=== PATIENT | female | born 1990 ===

== ENCOUNTER 2022-03-27 17:47 | Inpatient (IN) | payer SELFPAY ==
[2022-03-27] MEDS ORDERED: ACETAMINOPHEN 325 MG TAB PO PRN (20:08)
[2022-03-27] MEDS ORDERED: TERBUTALINE 1 MG/1 ML INJ SUB-Q PRN (20:08)
[2022-03-27] MEDS ORDERED: BUTORPHANOL 2 MG/1 ML INJ IV PRN (20:08)
[2022-03-27] MEDS ORDERED: ePHEDrine SULFATE 50 MG/1 ML INJ IV PRN (20:08)
[2022-03-27] MEDS ORDERED: CARBOPROST TROMETHAMINE 250 MCG/1 ML INJ IM PRN (20:08)
[2022-03-27] MEDS ORDERED: fentaNYL 100 MCG/2 ML INJ IV PRN (20:08)
--- NOTE | 2022-03-27 20:27 | History and Physical Report ---
History of Present Illness Date of examination: 03/27/22 Date of admission: 03/27/2022 Chief complaint: Elevated blood pressure in the clinic History of present illness: 31-year-old at 38-3/7 weeks gestation presents to OB triage reporting elevated blood pressure that was >=140/90 in the clinic. There is no headache, diplopia, right upper quadrant pain, or scotomata. However, blood pressures are >=160/110 in OB triage. The patient was given intravenous labetalol to keep blood pressure <160/110. The estimated 24 urine protein is 1478 mg. As such, these clinical findings fulfill the contemporary criteria for preeclampsia with severe features. Therefore, induction of labor is medically indicated at this gestational age. The patient had a previous performed in [place] for her first gestation. The patient reports that the reason for the delivery was at her first gestation was in the breech position. The patient was unable to obtain operative report. The patient desires a trial of labor after (TOLAC). Because most patients with a prior uterine incision for common obstetric indications have had a low transverse hysterotomy, ACOG Practice Bulletin 205 states that decision-making regarding TOLAC versus PRCB can often be based upon this assumption. Furthermore, the risk of uterine rupture with an unknown scar is less than 1% per the National [place] [employer] (NICHD) Maternal- Medicine Units (MFMU) Network study. The patient was counseled regarding all of these risks. She wished to proceed with attempting TOLAC. She understands the possibility of emergent delivery is very much present. She understands that there is risk to her own life and risk to her fetus. She understands the risk of hysterectomy, , and hemorrhage. There is no vaginal bleeding or leaking fluid. There are irregular contractions. Cervical exam is 1 cm dilated in OB triage. The patient is admitted to labor and delivery for induction of labor secondary to preeclampsia with severe features and attempting TOLAC. Cervix to be ripened with Cook's catheter and Pitocin. Past History Past Medical History: no pertinent history Past Surgical History: section Family/Genetic History: none Social history: no significant social history - Obstetrical History Expected Date of Delivery: 04/07/22 Actual Gestation: 38 Week(s) 4 Day(s) : 2 Para: 1 Hx # Term Pregnancies: 1 Number of Living Children: 1 Medications and Allergies Allergies Allergy/AdvReac Type Severity Reaction Status Date / Time No Known Allergies Allergy Unverified 03/27/22 20:25 Active Meds: Active Medications Acetaminophen (Acetaminophen 325 Mg Tab) 650 mg PO Q4H PRN PRN Reason: Pain, Mild (1-3) Butorphanol Tartrate (Butorphanol 2 Mg/1 Ml Inj) 2 mg IV Q2H PRN PRN Reason: Pain, Moderate(4-6) LABOR PAIN Carboprost Tromethamine (Carboprost Tromethamine 250 Mcg/1 Ml Inj) 250 mcg IM ONCE PRN PRN Reason: Uterine Bleeding Ephedrine Sulfate (Ephedrine Sulfate 50 Mg/1 Ml Inj) 10 mg IV Q2M PRN PRN Reason: Hypotension Fentanyl (Fentanyl 100 Mcg/2 Ml Inj) 100 mcg IV Q2H PRN PRN Reason: Pain,Severe (7-10) LABOR PAIN Lactated Ringer's (Lactated Ringers) 1,000 mls @ 125 mls/hr IV DIRECT MEHNAZ Oxytocin/Sodium Chloride (Pitocin/Ns 30 Unit/500ml) 30 units in 500 mls @ 40 mls/hr IV TITR MEHNAZ; Protocol Labetalol HCl (Labetalol 20 Mg/4 Ml Inj) 20 mg IV ONCE STA Stop: 03/27/22 20:19 Misoprostol (Misoprostol 25 Mcg Tab) 25 mcg PO Q4H MEHNAZ Stop: 03/28/22 09:01 Terbutaline Sulfate (Terbutaline 1 Mg/1 Ml Inj) 0.25 mg SUB-Q ONCE PRN PRN Reason: Hyperstimulation/Hypertonicity Review of Systems All systems: negative - Vital Signs Vital signs: Vital Signs Pulse Pulse Ox 74 98 03/27/22 19:37 03/27/22 19:37 Temp Pulse Resp BP Pulse Ox 98.0 F 81 22 173/106 97 03/27/22 19:38 03/27/22 20:22 03/27/22 19:38 03/27/22 20:14 03/27/22 20:22 - Physical Exam Breasts: Positive: normal Cardiovascular: Regular rate Lungs: Positive: Normal air movement Abdomen: Positive: normal appearance, soft Vulva: both: normal Vagina: Positive: normal moisture Uterus: Positive: enlarged Adnexa: both: normal Anus/Rectum: Positive: normal perianal skin Extremities: Positive: normal Deep Tendon Reflex Grade: Normal +2 - Obstetrical FHR: category 1 Uterine Contraction Monitor Mode: External Cervical Dilatation: 1 Cervical Effacement Percentage: 50 station: -3 Uterine Contraction Pattern: Irregular Results Result Diagrams: 03/27/22 20:29 03/27/22 20:29 Urine Protein to Creatinine Ratio (UPCR)= 1.12. There is significant proteinuria. Estimated 24 hour urine protein= 1478 mg Ultrasound: report reviewed, image reviewed Assessment and Plan - Patient Problems (1) 38 weeks gestation of Current Visit: Yes Status: Acute Plan to address problem: care is up-to-date. She is GBS (-). (2) Severe preeclampsia Current Visit: Yes Status: Acute Plan to address problem: The patient had elevated blood pressure in the clinic that was >=140/90 in the clinic. There is no headache, diplopia, right upper quadrant pain, or scotomata. However, blood pressures are >=160/110 in OB triage. The patient was given intravenous labetalol to keep blood pressure <160/110. The estimated 24 urine protein is 1478 mg. As such, these clinical findings fulfill the contemporary criteria for preeclampsia with severe features. Therefore, induction of labor is medically indicated at this gestational age. The patient is admitted to labor and delivery for induction of labor secondary to preeclampsia with severe features and attempting TOLAC. Cervix to be ripened with Cook's catheter and Pitocin. (3) Encounter for induction of labor Current Visit: Yes Status: Acute Plan to address problem: The patient is admitted to labor and delivery for induction of labor secondary to preeclampsia with severe features and attempting TOLAC. Cervix to be ripened with Cook's catheter and Pitocin. (4) Desires (vaginal after ) trial Current Visit: Yes Status: Acute Plan to address problem: The patient had a previous performed in [place] for her first gestation. The patient reports that the reason for the delivery was at her first gestation was in the breech position. The patient was unable to obtain operative report. The patient desires a trial of labor after (TOLAC). Because most patients with a prior uterine incision for common obstetric indications have had a low transverse hysterotomy, ACOG Practice Bulletin 205 states that decision-making regarding TOLAC versus PRCB can often be based upon this assumption. Furthermore, the risk of uterine rupture with an unknown scar is less than 1% per the National [place] [employer] [facility] [employer] [facility] [employer] (NICHD) Maternal- Medicine Units (MFMU) Network study. The patient was counseled regarding all of these risks. She wished to proceed with attempting TOLAC. She understands the possibility of emergent delivery is very much present. She understands that there is risk to her own life and risk to her fetus. She understands the risk of hysterectomy, , and hemorrhage. The patient is admitted to labor and delivery for induction of labor secondary to preeclampsia with severe features and attempting TOLAC. Cervix to be ripened with Cook's catheter and Pitocin.
[2022-03-27 20:48] LABS: Hematocrit 35.8 % (30.3-42.9); Mean Corpuscular HGB Conc 33 % (30-34); Mean Corpuscular Volume 80 fl (79-97); Platelet Count 209 K/mm3 (140-440); Red Blood Count 4.49 M/mm3 (3.65-5.03); Red Cell Distribution Width 17.3 % (13.2-15.2)
[2022-03-27 20:53] LABS: Bacteria,Urine 4+ /HPF (Negative); Bilirubin,Urine Negative (Negative); Color,Urine Yellow (Yellow); Mucus,Urine FEW /HPF
[2022-03-27 20:54] LABS: Blood,Urine Small (Negative); Urobilinogen,Urine 0.2 mg/dL (<2.0)
[2022-03-27 20:58] LABS: Creatinine,Urine 73.2 mg/dL (0.1-20.0)
[2022-03-27] MEDS ORDERED: miSOPROStol 25 MCG TAB PO SCH (21:00)
[2022-03-27] MEDS ORDERED: OXYTOCIN DRIP 30 UNITS/500 ML BAG IV SCH ×2 (21:00→23:45)
[2022-03-27 21:09] LABS: Alanine Aminotransferase 15 units/L (7-56); Albumin 3.6 g/dL (3.9-5); Blood Urea Nitrogen 7 mg/dL (7-17); Calcium 9.1 mg/dL (8.4-10.2); Hemolysis Index 5; Uric Acid 5.8 mg/dL (3.5-7.6)
[2022-03-27 21:10] LABS: BUN/Creatinine Ratio 18
[2022-03-28] MEDS: LACTATED RINGERS 1,000 ML IV SCH (00:10)
--- NOTE | 2022-03-28 00:40 | Ultrasound Report ---
ULTRASOUND OBSTETRIC INDICATION: Preeclampsia with severe features. Clinical Gestational Age (GA): 38.3 weeks TECHNIQUE: Transabdominal. COMPARISON: None available. FINDINGS: There is a single intrauterine with an estimated age of 36.5 weeks based on measurements. Heart Rate: 133 beats per minute. Estimated Weight in grams (if calculated): 3013 Estimated Weight Growth Percentile (if calculated): 23 Position: cephalic. Cervix: closed. Length in cm (if measured): Not measured Placenta: Not clearly seen. Amniotic Fluid Volume: normal Amniotic Fluid Index (GILMA) in cm (if calculated): 10.9. Maternal Adnexa: No significant abnormality. IMPRESSION: 1. Single, living intrauterine with estimated sonographic age of 36 weeks, 5 day(s). 2. No significant sonographic abnormality. Signer Name: Danis Angeles MD Signed: 03/28/2022 12:35 AM Workstation Name: [id number]
[2022-03-28] MEDS ORDERED: MAGNESIUM SULFATE 4 GM/100 ML BAG IV ONE (05:30)
[2022-03-28] MEDS ORDERED: MAGNESIUM SULFATE 40GM/1000ML 40 GM/1,000 ML BAG IV SCH (05:45)
[2022-03-28] MEDS ORDERED: BICITRA ORAL LIQD 30ML PO ONE (10:29)
[2022-03-28] MEDS ORDERED: METOCLOPRAMIDE 10 MG/2 ML INJ IV ONE (10:29)
[2022-03-28] MEDS ORDERED: FAMOTIDINE 20 MG/2 ML INJ IV ONE (10:29)
[2022-03-28] MEDS ORDERED: LACTATED RINGERS 1,000 ML IV SCH (10:30)
[2022-03-28] MEDS ORDERED: miSOPROStol 200 MCG TAB ONE (10:34)
--- NOTE | 2022-03-28 10:49 | Progress Note ---
Assessment and Plan A IUP @ 38 weeks TOLAC Unknown [email or web address] Vaginal bleeding D/c pitocin Pt.for Csection Subjective - Subjective Date of service: 03/28/22 Principal diagnosis: Labor, Previous Csection, TOLAC Objective - Vital Signs Vital Signs: Vital Signs - 12hr 03/27/22 03/27/22 03/27/22 22:47 22:52 22:56 Temperature Pulse Rate 67 77 76 Respiratory Rate Blood Pressure 193/95 Blood Pressure [Left] O2 Sat by Pulse 99 99 Oximetry O2 Sat by Pulse Oximetry [ Anterior Bilateral Throughout] 03/27/22 03/27/22 03/27/22 22:57 22:59 23:15 Temperature Pulse Rate 74 72 Respiratory Rate Blood Pressure 195/98 142/89 Blood Pressure [Left] O2 Sat by Pulse 99 Oximetry O2 Sat by Pulse Oximetry [ Anterior Bilateral Throughout] 03/27/22 03/27/22 03/27/22 23:16 23:21 23:26 Temperature Pulse Rate 69 76 71 Respiratory Rate Blood Pressure Blood Pressure [Left] O2 Sat by Pulse 98 99 98 Oximetry O2 Sat by Pulse Oximetry [ Anterior Bilateral Throughout] 03/27/22 03/27/22 03/27/22 23:31 23:36 23:39 Temperature Pulse Rate 72 68 66 Respiratory Rate Blood Pressure 170/91 Blood Pressure [Left] O2 Sat by Pulse 98 98 Oximetry O2 Sat by Pulse Oximetry [ Anterior Bilateral Throughout] 03/27/22 03/27/22 03/27/22 23:41 23:46 23:50 Temperature 98.2 F Pulse Rate 77 75 68 Respiratory 19 Rate Blood Pressure 159/95 Blood Pressure 159/95 [Left] O2 Sat by Pulse 96 96 97 Oximetry O2 Sat by Pulse Oximetry [ Anterior Bilateral Throughout] 03/27/22 03/27/22 03/28/22 23:51 23:56 00:01 Temperature Pulse Rate 75 76 76 Respiratory Rate Blood Pressure Blood Pressure [Left] O2 Sat by Pulse 97 96 99 Oximetry O2 Sat by Pulse Oximetry [ Anterior Bilateral Throughout] 03/28/22 03/28/22 03/28/22 00:09 00:14 00:19 Temperature Pulse Rate 78 75 78 Respiratory Rate Blood Pressure Blood Pressure [Left] O2 Sat by Pulse 100 98 98 Oximetry O2 Sat by Pulse Oximetry [ Anterior Bilateral Throughout] 03/28/22 03/28/22 03/28/22 00:24 00:29 00:34 Temperature Pulse Rate 79 77 77 Respiratory Rate Blood Pressure Blood Pressure [Left] O2 Sat by Pulse 98 98 95 Oximetry O2 Sat by Pulse Oximetry [ Anterior Bilateral Throughout] 03/28/22 03/28/22 03/28/22 00:39 00:44 00:49 Temperature Pulse Rate 69 78 77 Respiratory Rate Blood Pressure Blood Pressure [Left] O2 Sat by Pulse 98 97 97 Oximetry O2 Sat by Pulse Oximetry [ Anterior Bilateral Throughout] 03/28/22 03/28/22 03/28/22 00:54 00:59 01:04 Temperature Pulse Rate 81 86 72 Respiratory Rate Blood Pressure 147/88 Blood Pressure [Left] O2 Sat by Pulse 96 99 96 Oximetry O2 Sat by Pulse Oximetry [ Anterior Bilateral Throughout] 03/28/22 03/28/22 03/28/22 01:09 01:14 01:16 Temperature Pulse Rate 76 79 81 Respiratory Rate Blood Pressure Blood Pressure [Left] O2 Sat by Pulse 97 95 94 Oximetry O2 Sat by Pulse Oximetry [ Anterior Bilateral Throughout] 03/28/22 03/28/22 03/28/22 01:19 01:24 01:29 Temperature Pulse Rate 77 80 82 Respiratory Rate Blood Pressure 174/87 Blood Pressure [Left] O2 Sat by Pulse 96 95 96 Oximetry O2 Sat by Pulse Oximetry [ Anterior Bilateral Throughout] 03/28/22 03/28/22 03/28/22 01:32 01:34 01:39 Temperature Pulse Rate 73 78 75 Respiratory Rate Blood Pressure Blood Pressure [Left] O2 Sat by Pulse 94 95 97 Oximetry O2 Sat by Pulse Oximetry [ Anterior Bilateral Throughout] 03/28/22 03/28/22 03/28/22 01:43 01:44 01:49 Temperature Pulse Rate 79 75 77 Respiratory Rate Blood Pressure Blood Pressure [Left] O2 Sat by Pulse 94 97 96 Oximetry O2 Sat by Pulse Oximetry [ Anterior Bilateral Throughout] 03/28/22 03/28/22 03/28/22 01:54 01:59 02:04 Temperature Pulse Rate 78 79 79 Respiratory Rate Blood Pressure 150/87 Blood Pressure [Left] O2 Sat by Pulse 96 96 96 Oximetry O2 Sat by Pulse Oximetry [ Anterior Bilateral Throughout] 03/28/22 03/28/22 03/28/22 02:09 02:14 02:19 Temperature Pulse Rate 84 73 79 Respiratory Rate Blood Pressure Blood Pressure [Left] O2 Sat by Pulse 97 98 97 Oximetry O2 Sat by Pulse Oximetry [ Anterior Bilateral Throughout] 03/28/22 03/28/22 03/28/22 02:24 02:28 02:29 Temperature Pulse Rate 89 74 75 Respiratory Rate Blood Pressure 144/91 Blood Pressure [Left] O2 Sat by Pulse 97 97 Oximetry O2 Sat by Pulse Oximetry [ Anterior Bilateral Throughout] 03/28/22 03/28/22 03/28/22 02:34 02:39 02:44 Temperature Pulse Rate 85 77 75 Respiratory Rate Blood Pressure Blood Pressure [Left] O2 Sat by Pulse 98 96 97 Oximetry O2 Sat by Pulse Oximetry [ Anterior Bilateral Throughout] 03/28/22 03/28/22 03/28/22 02:49 02:54 02:59 Temperature Pulse Rate 76 75 77 Respiratory Rate Blood Pressure 165/89 Blood Pressure [Left] O2 Sat by Pulse 97 96 96 Oximetry O2 Sat by Pulse Oximetry [ Anterior Bilateral Throughout] 03/28/22 03/28/22 03/28/22 03:04 03:09 03:14 Temperature Pulse Rate 78 81 79 Respiratory Rate Blood Pressure Blood Pressure [Left] O2 Sat by Pulse 96 97 96 Oximetry O2 Sat by Pulse Oximetry [ Anterior Bilateral Throughout] 03/28/22 03/28/22 03/28/22 03:19 03:24 03:29 Temperature Pulse Rate 73 81 79 Respiratory Rate Blood Pressure 154/90 Blood Pressure [Left] O2 Sat by Pulse 97 97 98 Oximetry O2 Sat by Pulse Oximetry [ Anterior Bilateral Throughout] 03/28/22 03/28/22 03/28/22 03:34 03:39 03:44 Temperature Pulse Rate 77 75 81 Respiratory Rate Blood Pressure Blood Pressure [Left] O2 Sat by Pulse 98 98 97 Oximetry O2 Sat by Pulse Oximetry [ Anterior Bilateral Throughout] 03/28/22 03/28/22 03/28/22 03:49 03:54 03:59 Temperature Pulse Rate 77 77 74 Respiratory Rate Blood Pressure Blood Pressure [Left] O2 Sat by Pulse 98 97 98 Oximetry O2 Sat by Pulse Oximetry [ Anterior Bilateral Throughout] 03/28/22 03/28/22 03/28/22 04:00 04:04 04:09 Temperature Pulse Rate 71 90 74 Respiratory Rate Blood Pressure 155/83 Blood Pressure [Left] O2 Sat by Pulse 95 97 Oximetry O2 Sat by Pulse Oximetry [ Anterior Bilateral Throughout] 03/28/22 03/28/22 03/28/22 04:14 04:19 04:24 Temperature Pulse Rate 76 79 73 Respiratory Rate Blood Pressure Blood Pressure [Left] O2 Sat by Pulse 96 96 96 Oximetry O2 Sat by Pulse Oximetry [ Anterior Bilateral Throughout] 03/28/22 03/28/22 03/28/22 04:29 04:34 04:39 Temperature Pulse Rate 74 74 77 Respiratory Rate Blood Pressure 158/89 Blood Pressure [Left] O2 Sat by Pulse 94 95 95 Oximetry O2 Sat by Pulse Oximetry [ Anterior Bilateral Throughout] 03/28/22 03/28/22 03/28/22 04:40 04:44 04:46 Temperature Pulse Rate 76 77 78 Respiratory Rate Blood Pressure Blood Pressure [Left] O2 Sat by Pulse 94 95 94 Oximetry O2 Sat by Pulse Oximetry [ Anterior Bilateral Throughout] 03/28/22 03/28/22 03/28/22 04:49 04:54 04:59 Temperature Pulse Rate 76 79 79 Respiratory Rate Blood Pressure 156/99 Blood Pressure [Left] O2 Sat by Pulse 95 97 98 Oximetry O2 Sat by Pulse Oximetry [ Anterior Bilateral Throughout] 03/28/22 03/28/22 03/28/22 05:04 05:08 05:09 Temperature Pulse Rate 84 87 89 Respiratory Rate Blood Pressure Blood Pressure [Left] O2 Sat by Pulse 98 89 95 Oximetry O2 Sat by Pulse Oximetry [ Anterior Bilateral Throughout] 03/28/22 03/28/22 03/28/22 05:14 05:19 05:24 Temperature Pulse Rate 94 H 102 H 84 Respiratory Rate Blood Pressure Blood Pressure [Left] O2 Sat by Pulse 99 98 98 Oximetry O2 Sat by Pulse Oximetry [ Anterior Bilateral Throughout] 03/28/22 03/28/22 03/28/22 05:29 05:34 05:39 Temperature Pulse Rate 80 77 78 Respiratory Rate Blood Pressure 169/89 Blood Pressure [Left] O2 Sat by Pulse 97 97 98 Oximetry O2 Sat by Pulse Oximetry [ Anterior Bilateral Throughout] 03/28/22 03/28/22 03/28/22 05:44 05:49 05:54 Temperature Pulse Rate 69 78 74 Respiratory Rate Blood Pressure Blood Pressure [Left] O2 Sat by Pulse 98 97 98 Oximetry O2 Sat by Pulse Oximetry [ Anterior Bilateral Throughout] 03/28/22 03/28/2222 05:59 06:04 06:09 Temperature Pulse Rate 74 76 77 Respiratory Rate Blood Pressure 155/89 Blood Pressure [Left] O2 Sat by Pulse 99 97 97 Oximetry O2 Sat by Pulse Oximetry [ Anterior Bilateral Throughout] 03/28/22 03/28/22 03/28/22 06:14 06:19 06:24 Temperature Pulse Rate 74 64 75 Respiratory Rate Blood Pressure Blood Pressure [Left] O2 Sat by Pulse 98 97 98 Oximetry O2 Sat by Pulse Oximetry [ Anterior Bilateral Throughout] 03/28/22 03/28/22 03/28/22 06:29 06:34 06:39 Temperature Pulse Rate 72 74 75 Respiratory Rate Blood Pressure 154/93 Blood Pressure [Left] O2 Sat by Pulse 97 98 97 Oximetry O2 Sat by Pulse Oximetry [ Anterior Bilateral Throughout] 03/28/22 03/28/22 03/28/22 06:44 06:49 06:54 Temperature Pulse Rate 71 72 74 Respiratory Rate Blood Pressure Blood Pressure [Left] O2 Sat by Pulse 98 97 98 Oximetry O2 Sat by Pulse Oximetry [ Anterior Bilateral Throughout] 03/28/22 03/28/22 03/28/22 06:59 07:04 07:09 Temperature Pulse Rate 72 74 79 Respiratory Rate Blood Pressure 153/87 Blood Pressure [Left] O2 Sat by Pulse 98 98 98 Oximetry O2 Sat by Pulse Oximetry [ Anterior Bilateral Throughout] 03/28/22 03/28/22 03/28/22 07:14 07:19 07:24 Temperature Pulse Rate 74 72 78 Respiratory Rate Blood Pressure Blood Pressure [Left] O2 Sat by Pulse 99 98 97 Oximetry O2 Sat by Pulse Oximetry [ Anterior Bilateral Throughout] 03/28/22 03/28/22 03/28/22 07:30 07:35 07:40 Temperature Pulse Rate 75 74 74 Respiratory Rate Blood Pressure 162/83 Blood Pressure [Left] O2 Sat by Pulse 98 99 100 Oximetry O2 Sat by Pulse Oximetry [ Anterior Bilateral Throughout] 03/28/22 03/28/22 03/28/22 07:48 07:49 07:53 Temperature Pulse Rate 83 81 77 Respiratory Rate Blood Pressure 127/75 Blood Pressure [Left] O2 Sat by Pulse 98 98 Oximetry O2 Sat by Pulse Oximetry [ Anterior Bilateral Throughout] 03/28/22 03/28/22 03/28/22 07:58 07:59 08:03 Temperature Pulse Rate 79 76 80 Respiratory Rate Blood Pressure 127/72 Blood Pressure [Left] O2 Sat by Pulse 97 96 Oximetry O2 Sat by Pulse Oximetry [ Anterior Bilateral Throughout] 03/28/22 03/28/22 03/28/22 08:08 08:11 08:13 Temperature Pulse Rate 75 84 78 Respiratory Rate Blood Pressure Blood Pressure [Left] O2 Sat by Pulse 95 94 95 Oximetry O2 Sat by Pulse 98 Oximetry [ Anterior Bilateral Throughout] 03/28/22 03/28/22 03/28/22 08:14 08:16 08:18 Temperature 98.2 F Pulse Rate 80 80 Respiratory Rate Blood Pressure Blood Pressure [Left] O2 Sat by Pulse 94 95 Oximetry O2 Sat by Pulse Oximetry [ Anterior Bilateral Throughout] 03/28/22 03/28/22 03/28/22 08:22 08:23 08:28 Temperature Pulse Rate 87 90 87 Respiratory Rate Blood Pressure 139/76 Blood Pressure [Left] O2 Sat by Pulse 94 98 96 Oximetry O2 Sat by Pulse Oximetry [ Anterior Bilateral Throughout] 03/28/22 03/28/22 03/28/22 08:33 08:38 08:43 Temperature Pulse Rate 81 89 90 Respiratory Rate Blood Pressure Blood Pressure [Left] O2 Sat by Pulse 94 94 95 Oximetry O2 Sat by Pulse Oximetry [ Anterior Bilateral Throughout] 03/28/22 03/28/22 03/28/22 08:48 08:50 08:53 Temperature Pulse Rate 87 88 86 Respiratory Rate Blood Pressure Blood Pressure [Left] O2 Sat by Pulse 97 94 95 Oximetry O2 Sat by Pulse Oximetry [ Anterior Bilateral Throughout] 03/28/22 03/28/22 03/28/22 08:57 08:58 09:03 Temperature Pulse Rate 84 83 83 Respiratory Rate Blood Pressure 135/76 Blood Pressure [Left] O2 Sat by Pulse 94 95 95 Oximetry O2 Sat by Pulse Oximetry [ Anterior Bilateral Throughout] 03/28/22 03/28/22 03/28/22 09:08 09:13 09:18 Temperature Pulse Rate 92 H 89 92 H Respiratory Rate Blood Pressure Blood Pressure [Left] O2 Sat by Pulse 96 96 97 Oximetry O2 Sat by Pulse Oximetry [ Anterior Bilateral Throughout] 03/28/22 03/28/22 03/28/22 09:23 09:28 09:33 Temperature Pulse Rate 86 90 90 Respiratory Rate Blood Pressure 147/70 Blood Pressure [Left] O2 Sat by Pulse 98 98 98 Oximetry O2 Sat by Pulse Oximetry [ Anterior Bilateral Throughout] 03/28/22 03/28/22 03/28/22 09:38 09:43 09:48 Temperature Pulse Rate 85 94 H 87 Respiratory Rate Blood Pressure Blood Pressure [Left] O2 Sat by Pulse 97 98 99 Oximetry O2 Sat by Pulse Oximetry [ Anterior Bilateral Throughout] 03/28/22 03/28/22 03/28/22 09:53 09:58 10:03 Temperature Pulse Rate 93 H 88 89 Respiratory Rate Blood Pressure 135/78 Blood Pressure [Left] O2 Sat by Pulse 97 96 98 Oximetry O2 Sat by Pulse Oximetry [ Anterior Bilateral Throughout] 03/28/22 03/28/22 03/28/22 10:08 10:13 10:18 Temperature Pulse Rate 90 100 H 88 Respiratory Rate Blood Pressure Blood Pressure [Left] O2 Sat by Pulse 98 98 98 Oximetry O2 Sat by Pulse Oximetry [ Anterior Bilateral Throughout] 03/28/22 03/28/22 03/28/22 10:20 10:23 10:28 Temperature Pulse Rate 99 H 98 H 92 H Respiratory Rate Blood Pressure Blood Pressure [Left] O2 Sat by Pulse 91 98 98 Oximetry O2 Sat by Pulse Oximetry [ Anterior Bilateral Throughout] 03/28/22 03/28/22 03/28/22 10:30 10:34 10:39 Temperature Pulse Rate 90 92 H 90 Respiratory Rate Blood Pressure 152/89 Blood Pressure [Left] O2 Sat by Pulse 98 95 Oximetry O2 Sat by Pulse Oximetry [ Anterior Bilateral Throughout] - Exam FHR: category 1 Uterine Contraction Monitor Mode: External Cervical Dilatation: 1 (Vaginal bleeding) Cervical Effacement Percentage: 50 station: 50 - Labs Labs: Abnormal Labs 03/27/22 03/27/22 03/27/22 20:29 20:29 20:29 WBC 11.7 H MCH 27 L RDW 17.3 H Carbon Dioxide Creatinine Alkaline Phosphatase Lactate Dehydrogenase Albumin Urine Blood Small A Urine Creatinine 73.2 H Urine Total Protein 82 H 03/27/22 20:29 WBC MCH RDW Carbon Dioxide 18 L Creatinine 0.4 L Alkaline Phosphatase 193 H Lactate Dehydrogenase 267 H Albumin 3.6 L Urine Blood Urine Creatinine Urine Total Protein Laboratory Results - last 24 hr 03/27/22 03/27/22 03/27/22 19:00 20:29 20:29 WBC 11.7 H RBC 4.49 Hgb 12.0 Hct 35.8 MCV 80 MCH 27 L MCHC 33 RDW 17.3 H Plt Count 209 Sodium Potassium Chloride Carbon Dioxide Anion Gap BUN Creatinine Estimated GFR BUN/Creatinine Ratio Glucose Uric Acid Calcium Total Bilirubin AST ALT Alkaline Phosphatase Lactate Dehydrogenase Total Protein Albumin Albumin/Globulin Ratio Urine Color Yellow Urine Turbidity Clear Urine pH 6.0 Ur Specific [place] 1.015 Urine Protein 100 mg/dl Urine Glucose (UA) Negative Urine Ketones 5.0 Urine Blood Small A Urine Nitrite Negative Ur Reducing Substances Not Reportable Urine Bilirubin Negative Urine Ictotest Not Reportable Urine Urobilinogen 0.2 Ur Leukocyte Esterase Negative Urine WBC (Auto) 3.0 Urine RBC (Auto) 2.0 U Epithel Cells (Auto) 5.0 Urine Bacteria (Auto) 4+ Urine Mucus Few Urine Creatinine Urine Total Protein Blood Type A POSITIVE Antibody Screen Negative 03/27/22 03/27/22 20:29 20:29 WBC RBC Hgb Hct MCV MCH MCHC RDW Plt Count Sodium 137 Potassium 3.7 Chloride 105.7 Carbon Dioxide 18 L Anion Gap 17 BUN 7 Creatinine 0.4 L Estimated GFR > 60 BUN/Creatinine Ratio 18 Glucose 70 Uric Acid 5.8 Calcium 9.1 Total Bilirubin 0.20 AST 22 ALT 15 Alkaline Phosphatase 193 H Lactate Dehydrogenase 267 H Total Protein 6.5 Albumin 3.6 L Albumin/Globulin Ratio 1.2 Urine Color Urine Turbidity Urine pH Ur Specific [place] Urine Protein Urine Glucose (UA) Urine Ketones Urine Blood Urine Nitrite Ur Reducing Substances Urine Bilirubin Urine Ictotest Urine Urobilinogen Ur Leukocyte Esterase Urine WBC (Auto) Urine RBC (Auto) U Epithel Cells (Auto) Urine Bacteria (Auto) Urine Mucus Urine Creatinine 73.2 H Urine Total Protein 82 H Blood Type Antibody Screen
[2022-03-28] MEDS ORDERED: ONDANSETRON 4 MG/2 ML INJ ONE (10:50)
[2022-03-28] MEDS ORDERED: dexAMETHasone 20 MG/5 ML VIAL ONE (10:53)
--- NOTE | 2022-03-28 10:55 | Anesthesia Consultation ---
Anesthesia Consult and Med Hx Date of service: 03/28/22 - Airway Anesthetic Teeth Evaluation: Good ROM Head & Neck: Adequate Mental/Hyoid Distance: Adequate Mallampati Class: Class II Intubation Access Assessment: Probably Good - Pulmonary Exam CTA: Yes - Cardiac Exam Cardiac Exam: RRR - Pre-Operative Health Status ASA Pre-Surgery Classification: ASA2, Emergency Proposed Anesthetic Plan: Spinal Nerve Block: TAP block - Pulmonary Hx Smoking: No Hx Asthma: No COPD: No Hx Pneumonia: No Hx Sleep Apnea: No - Cardiovascular System Hx Hypertension: Yes (PRESENT - improved with Mag infusion) - Central Nervous System Hx Seizures: No CVA: No Hx Psychiatric Problems: No - Gastrointestinal Hx Ulcer: No - Endocrine Hx Renal Disease: No Hx End Stage Renal Disease: No Hx Liver Disease: No Hx Non-Insulin Dependent Diabetes: No Hx Hypothyroidism: No Hx Hyperthyroidism: No - Hematic Hx Anemia: No Hx Sickle Cell Disease: No - Other Systems Hx Alcohol Use: No Hx Substance Use: No Hx Cancer: No Hx Obesity: No - Additional Comments Anesthesia Medical History Comments: No hx of anesthetic complications
[2022-03-28] MEDS ORDERED: PROMETHAZINE 25 MG TAB PO PRN (10:56)
[2022-03-28] MEDS ORDERED: ONDANSETRON 4 MG/2 ML INJ IV PRN ×2 (10:56→15:00)
[2022-03-28] MEDS ORDERED: NALOXONE 0.4 MG/1 ML INJ IV PRN ×2 (10:56→15:00)
[2022-03-28] MEDS ORDERED: PROMETHAZINE 25 MG RECT SUPP PR PRN (10:56)
--- NOTE | 2022-03-28 10:56 | Anesthesia Day of Surgery ---
Anesthesia Day of Surgery - Day of Surgery Patient Examined: Yes Patient H&P Reviewed: Yes Patient is NPO: Yes
[2022-03-28] MEDS ORDERED: ceFAZolin/Water 2 GM/20 ML 2 GM/20 ML SYRINGE IV SCH (11:00)
[2022-03-28] MEDS ORDERED: OXYTOCIN DRIP 30 UNITS/500 ML BAG IV SCH ×2 (11:00→14:00)
[2022-03-28] MEDS ORDERED: SODIUM CHLORIDE 0.9% IRR 1,500 ML BOTTLE IR ONE (11:10)
[2022-03-28] MEDS ORDERED: WATER FOR IRRIG STERILE 1,500 ML BOTTLE IR ONE (11:10)
[2022-03-28] MEDS ORDERED: ceFAZolin/STERILE WATER 2 GM/20 ML SYRINGE IV ONE (11:30)
[2022-03-28] MEDS ORDERED: propofoL 200 MG/20 ML VIAL IV ONE ×2 (11:32→11:33)
[2022-03-28] MEDS ORDERED: SUCCINYLCHOLINE CHLORIDE 200 MG/10 ML INJ MDV ONE (11:32)
[2022-03-28] MEDS ORDERED: KETAMINE/STERILE WATER 50 MG/ML SYRINGE ONE (11:33)
[2022-03-28] MEDS ORDERED: SODIUM CHLORIDE 0.9% 100 ML ONE (12:16)
[2022-03-28] MEDS ORDERED: fentaNYL 100 MCG/2 ML INJ ONE (12:21)
--- NOTE | 2022-03-28 13:22 | Procedure Note ---
OB Delivery Note - Delivery Date of Delivery: 03/28/22 Surgeon: VERENICE YUAN Estimated blood loss: other (400ml) - Section Preop diagnosis: other (Vaginal Bleeding, Fail Trial of Labor after Se ction) Postop diagnosis: same section procedure: section, repeat low transverse Disposition: PACU Complications: none Narrative: Patient was taken to the operating room for a repeat section after failed trial of labor after section. A Lim catheter was placed. She was prepped and draped in the normal sterile fashion. General anesthesia was given secondary to difficulty placing a catheter for the spinal anesthesia. A Pfannenstiel skin incision was made with the scalpel approximately 2 finger breadths above the symphysis pubis and carried down to the underlying layer of fascia. An incision was made in the midline of the fascia using the scalpel. The incision was then extended laterally using the Hamilton scissors. The superior aspect of the incision was grasped with Noelle clamps elevated and the rectus muscle dissected off. Attention was turned to the inferior aspect of the incision which was grasped with Noelle clamps elevated and the rectus muscle dissected off. The rectus muscle was in the midline. Hemostats were then used to elevate the peritoneum. The metzenbaum scissors was then used to make an incision in the peritoneum. The incision was then opened manually and stretched. A bladder blade was placed over the bladder. The vesicouterine peritoneum was then elevated and the Metzenbaum scissors used to make an incision, this was then extended laterally. The bladder flap was then created. The bladder blade was placed over the bladder. A transverse incision was made in the lower uterine segment.This was extended laterally using the bandage scissors. The 's head was noted to be in the vertex presentation.The infant was delivered without complication. The cord was clamped and cut after a 1 minute delay. The placenta was removed from the uterus The uterus was exteriorized. The uterine cavity was cleared of all clots and debris. The uterine incision was closed using 1 Vicryl suture in a running locked fashion. Several bleeding points were noted, [id number] were placed for hemostasis. Good hemostasis was noted after placement of the figures of 8. The posterior cul-de-sac was then irrigated with warm normal saline. The uterus was then replaced into the abdomen. The gutters were cleared of all clots and debris. The uterine incision was then inspected, no active bleeding was noted. Surgicel was placed over the uterine incision. All laps and instruments were removed from the abdomen. The muscle was then reapproximated with 3-0 Vicryl. The fascia was closed with 0 Vicryl suture. The subcutaneous fat was closed using 3-0 Vicryl. The skin was used using subcuticular sutures of 4-0 Vicryl. Sponge laps and needle counts were correct x2. Patient to PACU in stable condition. - Infant A at 1 minute: 8 at 5 minutes: 9 Gender: Female
[2022-03-28] MEDS ORDERED: KETOROLAC 30 MG/1 ML INJ IV PRN (13:46)
[2022-03-28] MEDS: MAGNESIUM SULFATE 40GM/1000ML 40 GM/1,000 ML BAG IV SCH (14:35)
[2022-03-28] MEDS ORDERED: LANOLIN/ZINC/DIMETHICONE (LANSINOH) 7 GM TP PRN (15:00)
[2022-03-28] MEDS ORDERED: WITCH HAZEL/ GLYCERIN PAD TP PRN (15:00)
[2022-03-28] MEDS ORDERED: MORPHINE 4 MG/1 ML INJ IV PRN (15:00)
[2022-03-28] MEDS: oxyCODONE /ACETAMINOPHEN 5-325MG TAB PO PRN (19:40)
[2022-03-29 02:00] LABS: Hematocrit 30.4 % (30.3-42.9)
[2022-03-29] MEDS: LACTATED RINGERS 1,000 ML IV SCH (02:49)
[2022-03-29] MEDS: IBUPROFEN 800 MG TAB PO PRN ×2 (10:02→17:19)
[2022-03-29] MEDS: PRENATAL VIT27-FE FUMARATE-FOLIC ACID VIT TAB PO SCH (10:02)
--- NOTE | 2022-03-29 10:02 | Progress Note ---
Assessment and Plan A: S/P repeat LTCS Preeclampsia P: Continue routine pp orders Continue MgSo4 as ordered D/c within 24-48 hrs if stable Subjective - Subjective Date of service: 03/29/22 Principal diagnosis: Labor, Previous Csection, TOLAC Patient reports: pain well controlled, other (no gas yet, + BS, uribe cath to bedside drainage with adq amts stella colored urine) : doing well, bottle feeding Objective - Vital Signs Latest vital signs: Vital Signs Temp Pulse Resp BP BP Pulse Ox Pulse Ox 03/29/22 09:55 93 H 97 03/29/22 09:50 91 H 97 03/29/22 09:45 94 H 97 03/29/22 09:42 91 H 161/87 03/29/22 09:40 94 H 97 03/29/22 09:35 89 97 03/29/22 09:30 98 H 97 03/29/22 09:25 97 H 97 03/29/22 09:20 96 H 96 03/29/22 09:15 92 H 96 03/29/22 09:10 93 H 97 03/29/22 09:05 94 H 97 03/29/22 09:00 88 97 03/29/22 08:59 89 162/87 03/29/22 08:55 92 H 96 03/29/22 08:50 93 H 97 03/29/22 08:44 95 H 97 03/29/22 08:39 100 H 97 03/29/22 08:35 91 H 97 03/29/22 08:33 97 03/29/22 08:30 95 H 97 03/29/22 08:25 94 H 97 03/29/22 08:24 97 03/29/22 08:20 100 H 97 03/29/22 08:15 98 H 97 03/29/22 08:10 94 H 97 03/29/22 08:05 94 H 97 03/29/22 08:00 88 97 03/29/22 07:59 87 161/86 03/29/22 07:55 87 97 03/29/22 07:50 84 98 03/29/22 07:45 87 97 03/29/22 07:40 85 97 03/29/22 07:35 85 97 03/29/22 07:29 86 97 03/29/22 07:25 88 97 03/29/22 07:19 91 H 97 03/29/22 07:14 93 H 97 03/29/22 07:09 100 H 97 03/29/22 07:04 90 97 03/29/22 06:59 94 H 161/86 97 03/29/22 06:54 82 98 03/29/22 06:49 82 98 03/29/22 06:44 83 98 03/29/22 06:39 82 97 03/29/22 06:35 84 97 03/29/22 06:29 83 97 03/29/22 06:24 87 97 03/29/22 06:20 84 97 03/29/22 06:15 86 96 03/29/22 06:10 85 96 03/29/22 06:05 89 96 03/29/22 06:00 90 97 03/29/22 05:59 92 H 18 159/90 159/90 97 03/29/22 05:55 88 97 03/29/22 05:50 88 97 03/29/22 05:45 89 97 03/29/22 05:40 85 97 03/29/22 05:34 91 H 97 05 05:30 89 97 03/29/22 05:24 91 H 97 05 05:22 89 88 03/29/22 05:20 95 H 96 05 05:16 93 H 94 03/29/22 05:15 94 H 97 03/29/22 05:09 95 H 95 03/29/22 05:07 93 H 94 03/29/22 05:05 98 H 95 05 05:01 91 H 94 03/29/22 04:59 90 18 152/78 152/78 96 05 04:54 88 96 05 04:51 89 94 05 04:49 89 95 05 04:44 88 96 05 04:40 88 96 05 04:39 87 94 03/29/22 04:34 90 95 05 04:29 91 H 95 05 04:24 92 H 95 0805 04:19 89 95 05 04:14 91 H 95 05 04:13 89 94 03/29/22 04:09 90 95 03/29/22 04:06 88 94 03/29/22 04:04 91 H 95 03/29/22 03:59 98.6 F 91 H 18 137/84 137/84 95 03/29/22 03:57 93 H 94 03/29/22 03:54 90 97 03/29/22 03:49 88 96 03/29/22 03:44 89 96 03/29/22 03:39 92 H 95 03/29/22 03:34 92 H 95 03/29/22 03:29 90 96 03/29/22 03:24 85 96 03/29/22 03:19 86 96 03/29/22 03:14 89 96 03/29/22 03:09 90 96 03/29/22 03:04 92 H 97 03/29/22 02:59 92 H 16 144/89 144/89 97 03/29/22 02:54 88 96 03/29/22 02:49 88 97 03/29/22 02:44 89 96 03/29/22 02:39 95 H 97 03/29/22 02:34 91 H 97 03/29/22 02:29 91 H 97 03/29/22 02:24 85 96 03/29/22 02:19 88 96 03/29/22 02:14 93 H 96 03/29/22 02:09 93 H 96 03/29/22 02:04 95 H 97 03/29/22 01:59 90 16 141/82 141/82 96 03/29/22 01:54 95 H 97 03/29/22 01:49 88 96 03/29/22 01:44 94 H 97 03/29/22 01:39 95 H 96 03/29/22 01:34 96 H 95 03/29/22 01:29 96 H 96 03/29/22 01:24 96 H 96 03/29/22 01:19 98 H 95 03/29/22 01:14 93 H 96 03/29/22 01:11 96 H 94 03/29/22 01:09 96 H 96 03/29/22 01:04 97 H 95 03/29/22 01:03 98 H 94 03/29/22 00:59 94 H 140/82 95 03/29/22 00:54 97 H 94 03/29/22 00:50 95 H 94 03/29/22 00:49 95 H 95 03/29/22 00:44 99 H 95 03/29/22 00:39 95 H 97 03/29/22 00:34 94 H 96 03/29/22 00:29 98 H 96 03/29/22 00:24 100 H 96 03/29/22 00:19 100 H 96 03/29/22 00:14 101 H 96 03/29/22 00:09 98 H 95 03/29/22 00:05 100 H 94 03/29/22 00:04 95 H 95 03/28/22 23:59 97 H 132/79 94 03/28/22 23:58 98 H 94 03/28/22 23:56 98 03/28/22 23:54 98 H 94 03/28/22 23:51 96 H 94 03/28/22 23:49 92 H 95 03/28/22 23:44 100 H 95 03/28/22 23:39 95 H 95 03/28/22 23:34 99 H 95 03/28/22 23:29 98.2 F 93 H 16 95 03/28/22 23:24 99 H 95 03/28/22 23:19 101 H 95 03/28/22 23:14 99 H 95 03/28/22 23:12 105 H 94 03/28/22 23:09 101 H 95 03/28/22 23:04 100 H 95 03/28/22 22:59 98 H 137/82 95 03/28/22 22:54 97 H 95 03/28/22 22:49 101 H 95 03/28/22 22:44 99 H 96 03/28/22 22:39 103 H 95 03/28/22 22:34 100 H 96 03/28/22 22:29 96 H 95 03/28/22 22:24 98 H 96 03/28/22 22:19 98 H 96 03/28/22 22:14 97 H 97 03/28/22 22:09 101 H 97 03/28/22 22:04 97 H 97 03/28/22 21:59 105 H 165/90 97 03/28/22 21:54 97 H 97 03/28/22 21:49 95 H 97 03/28/22 21:44 99 H 97 03/28/22 21:39 106 H 97 03/28/22 21:34 103 H 96 03/28/22 21:29 98 H 96 03/28/22 21:24 100 H 96 03/28/22 21:19 98 H 96 03/28/22 21:14 98 H 97 03/28/22 21:09 90 97 03/28/22 21:04 99 H 96 03/28/22 21:00 96 H 146/80 03/28/22 20:59 98 H 96 03/28/22 20:54 94 H 97 03/28/22 20:49 100 H 96 03/28/22 20:44 98 H 96 03/28/22 20:39 93 H 97 03/28/22 20:34 100 H 97 03/28/22 20:29 100 H 97 03/28/22 20:24 99 H 96 03/28/22 20:19 99 H 97 03/28/22 20:14 98 H 97 03/28/22 20:09 99 H 97 03/28/22 20:04 93 H 97 03/28/22 19:59 97 H 96 03/28/22 19:54 98 H 97 03/28/22 19:49 94 H 96 03/28/22 19:44 90 151/86 96 03/28/22 19:43 98.4 F 96 03/28/22 19:39 93 H 97 03/28/22 19:34 95 H 96 03/28/22 19:29 91 H 97 03/28/22 19:24 91 H 96 03/28/22 19:19 94 H 96 03/28/22 19:14 91 H 97 03/28/22 19:09 92 H 97 03/28/22 19:04 96 H 97 03/28/22 18:59 92 H 97 03/28/22 18:54 88 97 03/28/22 18:49 92 H 97 03/28/22 18:44 91 H 97 03/28/22 18:39 90 98 03/28/22 18:34 91 H 97 03/28/22 18:29 92 H 97 03/28/22 18:24 77 97 03/28/22 18:19 94 H 96 03/28/22 18:14 82 97 03/28/22 18:09 87 97 03/28/22 18:04 89 97 03/28/22 17:59 82 97 03/28/22 17:54 85 97 08/04/22 17:49 83 97 03/28/22 17:44 81 98 03/28/22 17:39 81 96 03/28/22 17:34 83 96 03/28/22 17:29 84 97 03/28/22 17:24 79 96 03/28/22 17:19 79 97 03/28/22 17:14 81 97 03/28/22 17:09 79 96 03/28/22 17:04 78 96 03/28/22 16:59 80 97 03/28/22 16:54 82 97 03/28/22 16:49 77 96 03/28/22 16:44 81 97 03/28/22 16:39 83 97 03/28/22 16:34 73 98 03/28/22 16:29 77 97 03/28/22 16:24 78 97 03/28/22 16:19 82 98 03/28/22 16:14 77 96 03/28/22 16:09 82 98 03/28/22 16:04 75 97 03/28/22 15:59 75 96 03/28/22 15:54 75 96 03/28/22 15:49 77 96 03/28/22 15:44 73 96 03/28/22 15:39 78 96 03/28/22 15:34 73 96 03/28/22 15:29 73 96 03/28/22 15:24 69 96 03/28/22 15:19 67 96 03/28/22 15:14 78 96 03/28/22 15:09 79 96 03/28/22 15:04 73 97 03/28/22 14:59 64 96 03/28/22 14:54 75 96 03/28/22 14:49 74 96 03/28/22 14:44 82 97 03/28/22 14:39 78 96 03/28/22 14:34 82 97 03/28/22 14:15 97.5 F L 70 17 142/88 100 03/28/22 14:00 74 16 149/88 100 03/28/22 13:45 71 16 162/92 100 03/28/22 13:30 72 16 159/93 99 03/28/22 13:25 74 15 146/89 99 03/28/22 13:20 72 17 152/89 99 03/28/22 13:15 07.1 F L 72 14 155/90 99 03/28/22 10:49 101 H 98 03/28/22 10:44 88 97 03/28/22 10:39 90 95 03/28/22 10:34 92 H 98 03/28/22 10:30 90 152/89 03/28/22 10:28 92 H 98 03/28/22 10:23 98 H 98 03/28/22 10:20 99 H 91 03/28/22 10:18 88 98 03/28/22 10:13 100 H 98 03/28/22 10:08 90 98 03/28/22 10:03 89 98 Intake and Output 03/28/22 03/29/22 03/29/22 22:59 06:59 14:59 Intake Total 100 Output Total 650 2600 1000 Balance -650 -2500 -1000 Intake: Oral 100 Output: Urine 650 2600 1000 Indwelling Catheter 650 1500 1000 Uretheral (Uribe) 1100 Other: Total, Intake Amount 100 Total, Output Amount [phone] # Voids Indwelling Catheter 2 Estimated Blood Loss 510 - Exam Breasts: Present: normal Abdomen: Present: normal appearance, soft, normal bowel sounds Vulva: both: normal Uterus: Present: normal, firm, fundal height below umbilicus Extremities: Present: normal Incision: Present: normal, dry, intact - Labs Labs: Abnormal lab results 03/28/22 03/29/22 03/29/22 Range/Units 18:06 01:47 02:53 Hgb 10.0 L (10.1-14.3) gm/dl Magnesium 4.60 H 5.20 H (1.7-2.3) mg/dL 03/29/22 Range/Units 07:45 Hgb (10.1-14.3) gm/dl Magnesium 5.00 H (1.7-2.3) mg/dL
[2022-03-29] MEDS: MAGNESIUM SULFATE 40GM/1000ML 40 GM/1,000 ML BAG IV SCH (10:33)
[2022-03-29] MEDS ORDERED: hydrALAZINE 20 MG/1 ML INJ IV NR (10:41)
[2022-03-29] MEDS: oxyCODONE /ACETAMINOPHEN 5-325MG TAB PO PRN ×2 (12:55→21:08)
[2022-03-30] MEDS: IBUPROFEN 800 MG TAB PO PRN ×2 (05:49→16:30)
[2022-03-30] MEDS: PRENATAL VIT27-FE FUMARATE-FOLIC ACID VIT TAB PO SCH (09:16)
--- NOTE | 2022-03-30 10:29 | Progress Note ---
Assessment and Plan POD # 2 A: S/P repeat LTCS preeclampsia s/p Mg S04 p: Continue routine pp orders D/C home tomm if stable Subjective - Subjective Date of service: 03/30/22 Principal diagnosis: s/p repeat LTCS Patient reports: appetite normal, voiding normally, dizzy ambulation, pain well controlled, flatus, ambulating normally [place]: doing well, bottle feeding Objective - Vital Signs Latest vital signs: Vital Signs Temp Pulse Resp BP BP Pulse Ox Pulse Ox 03/30/22 10:14 97 03/30/22 07:36 99.4 F 18 136/86 03/30/22 05:43 150/90 03/30/22 05:40 92 H 18 144/81 96 03/30/22 00:36 97.9 F 89 18 112/67 92 03/29/22 22:46 102 H 125/81 03/29/22 21:39 102 H 18 125/81 97 03/29/22 15:35 97.6 F 78 18 131/75 98 03/29/22 14:26 91 H 96 03/29/22 14:21 96 H 96 03/29/22 14:16 95 H 97 03/29/22 14:11 92 H 96 03/29/22 14:08 92 H 105/56 03/29/22 14:06 91 H 96 03/29/22 14:01 88 96 03/29/22 13:56 87 96 03/29/22 13:51 91 H 97 03/29/22 13:46 102 H 96 03/29/22 13:41 96 H 96 03/29/22 13:38 85 105/67 03/29/22 13:36 87 96 03/29/22 13:32 93 H 94 03/29/22 13:31 84 95 03/29/22 13:26 85 95 03/29/22 13:21 86 96 03/29/22 13:16 87 96 03/29/22 13:11 88 97 03/29/22 13:08 88 128/79 03/29/22 13:06 87 97 03/29/22 13:01 85 97 03/29/22 12:56 87 98 03/29/22 12:55 16 03/29/22 12:51 88 96 03/29/22 12:46 88 97 03/29/22 12:41 90 16 140/94 97 03/29/22 12:38 96 H 140/94 03/29/22 12:36 97 H 97 03/29/22 12:31 88 97 03/29/22 12:26 96 H 97 03/29/22 12:21 95 H 97 03/29/22 12:16 91 H 97 03/29/22 12:11 88 97 03/29/22 12:08 90 145/80 03/29/22 12:06 89 97 03/29/22 12:01 90 97 03/29/22 11:56 89 97 03/29/22 11:51 89 97 03/29/22 11:46 91 H 97 03/29/22 11:41 90 97 03/29/22 11:38 93 H 164/88 03/29/22 11:36 101 H 97 03/29/22 11:35 98 H 97 03/29/22 11:30 117 H 96 03/29/22 11:25 99 H 97 03/29/22 11:20 99 H 97 03/29/22 11:15 101 H 97 03/29/22 11:10 95 H 97 03/29/22 11:05 86 97 03/29/22 11:00 95 H 96 03/29/22 10:55 99 H 97 03/29/22 10:50 95 H 97 03/29/22 10:45 95 H 97 03/29/22 10:40 87 97 03/29/22 10:35 93 H 98 03/29/22 10:30 93 H 97 Intake and Output 03/29/22 03/30/22 03/30/22 22:59 06:59 14:59 Intake Total 120 240 Output Total 1200 Balance -1080 240 Intake: Oral 120 240 Output: Urine 1200 Indwelling Catheter 500 Void 700 Other: Total, Intake Amount 120 120 Total, Output Amount 700 # Voids Indwelling Catheter 1 Void 1 1 - Exam Breasts: Present: normal Abdomen: Present: normal appearance, soft, normal bowel sounds Vulva: both: normal Uterus: Present: normal, firm, fundal height below umbilicus Extremities: Present: normal Incision: Present: normal, dry, intact
--- NOTE | 2022-03-31 09:26 | Discharge Summary ---
Providers - Providers Date of Admission: 03/27/22 20:08 Date of discharge: 03/31/22 Attending physician: LINDA MCALLISTER Primary care physician: LINDA MCALLISTER Hospitalization Reason for admission: induction of labor (preeclampsia), other Delivery: Procedure: repeat low transverse Episiotomy: none Laceration: none Incision: normal, dry, intact Other procedures: none complications: other (Required Labetalol 100mg bid for b/p) Discharge diagnosis: IUP at term delivered baby: female Hospital course: Pt was admitted to L&D for an IOL r/t preeclampsia. She was started on MgS04 and had a repeat LTCS r/t vag bleeding and a failed TOLAC. Pt continued MgS04 24hr post del. She was given Hydalazine pp for elevated b/ps and started on Labetalol 100mg bid. After pt's b/ps were stabilized, she was d/c'd home in stable condition. She was advised to f/u in 1 wk for a b/p check. Condition at discharge: Stable Disposition: 01 HOME / SELF CARE / HOMELESS Plan - Discharge Medications Prescriptions: labetaloL [Labetalol 100mg TAB] 100 mg PO BID #90 tablet Ibuprofen [Motrin 800 MG tab] 800 mg PO Q6H PRN #20 tablet PRN Reason: Pain, Mild (1-3) Acetaminophen/Codeine [Tylenol /Codeine # 3 tab] 1 tab PO Q6H PRN #15 tab PRN Reason: Pain, Moderate (4-6) - Provider Discharge Summary Activity: routine, no sex for 6 weeks, no heavy lifting 4 weeks, no strenuous exercise Diet: routine Instructions: other (f/u in 1 wk for a b/p check) Additional instructions: [] Smoking cessation referral if applicable(refer to patient education folder for contact #) [] Refer to [facility] Booklet Call your doctor immediately for: * Fever > 100.5 * Heavy vaginal bleeding ( >1 pad per hour) * Severe persistent headache * Shortness of breath * Reddened, hot, painful area to leg or breast * Drainage or odor from incision. * Keep incision clean and dry at all times and follow doctor's instructions regarding bathing/showering - Follow up plan Follow up: LINDA MCALLISTER MD [Primary Care Provider] - 7 Days
[2022-03-31] MEDS: PRENATAL VIT27-FE FUMARATE-FOLIC ACID VIT TAB PO SCH (10:08)
[2022-03-31 16:58] VITALS: BP 122/68
== END 2022-03-31 15:45 | disposition home or self-care (01) | DRG 788 ==
LOC: TRG 17:47 → APU 17:52 → TRG 20:08 → LD 20:08 → OB 03-29 15:28
PROVIDERS: ADMIT Obstetrics & Gynecology Gynecology; ATTEND Obstetrics & Gynecology
PROC: 10D00Z1 Extraction of Products of Conception, Low, Open Approach (ICD-10-PCS; principal; 2022-03-28)
DX: O14.14 Severe pre-eclampsia complicating childbirth (principal); Z3A.38 38 weeks gestation of pregnancy; Z37.0 Single live birth; Z20.822 Contact with and (suspected) exposure to COVID-19; O34.211 Maternal care for low transverse scar from previous cesarean delivery
CPT/HCPCS: 36415; 76816; 80053; 81001; 82570; 83615; 83735; 84156; 84550; 85014; 85018; 85027; 86850; 86900; 86901; G0378; J3490; J7121; J0330; J0360; J0690; J1100; J2405; J2590; J2704; J2765; J3010; J3475; J7120; U0003